=== PATIENT | male | born 1980 | race Caucasian/White ===

== ENCOUNTER 2020-11-19 09:41 | Emergency (ER) | payer OTHER ==
[~2020-11-19] VITALS: Ht 172.7 cm; Wt 73.6 kg
[2020-11-19 09:49] VITALS: BP 124/82
[2020-11-19] MEDS ORDERED: morphine 4 MG/ML inj SYRINge IV ONE (10:20)
[2020-11-19] MEDS ORDERED: ketorolac tromethamine 15mg/ml inj. IV ONE (11:55)
[2020-11-19] MEDS ORDERED: HYDR-3965 PO (12:13)
== END 2020-11-19 12:33 | disposition home or self-care (01) ==
LOC: ER 09:41
DX: R07.89 Other chest pain (principal); Z88.0 Allergy status to penicillin; Z98.890 Other specified postprocedural states; Z79.899 Other long term (current) drug therapy
CPT/HCPCS: 71046; 71250; 96374; 99284; J2270

== ENCOUNTER 2020-11-23 10:39 | Emergency (ER) | payer OTHER ==
[~2020-11-23] VITALS: Ht 172.7 cm; Wt 72.1 kg
[~2020-11-23 10:39] MED LIST: HYDR-3965 PO
[2020-11-23 10:54] VITALS: BP 118/74
== END 2020-11-23 12:14 | disposition home or self-care (01) ==
LOC: ER 10:39
DX: R07.89 Other chest pain (principal); M25.512 Pain in left shoulder; Z88.0 Allergy status to penicillin; Z79.899 Other long term (current) drug therapy
CPT/HCPCS: 99282